=== PATIENT | male | born 1960 | race Caucasian/White ===

== ENCOUNTER 2020-01-30 10:41 | Day surgery (SDC) | payer OTHER, SELFPAY ==
[2020-01-30] VITALS (7 sets, daily range): BP systolic 139–159; BP diastolic 87–106; PULSE 64–71; RESP 16–18; TEMP 36.1–37.1; O2SAT 94–98; BMI 43.1
--- NOTE | 2020-01-30 10:52 | RAD_ITS ---
STUDY: X-RAY - ABDOMEN/PELVIS REASON FOR EXAM: Male, 59 years old. Pre op left kidney stone TECHNIQUE: Single AP view of the abdomen / pelvis. COMPARISON: None. FINDINGS: There is a moderate amount of colonic fecal material. There is a 8.3 mm calculus overlying the transverse process of the L1 vertebrae on the left side. Normal soft tissue structures. There are diffuse degenerative changes of the visualized lumbar spine. RAD/Abdomen Single View IMPRESSION: 8.3 mm calculus overlying the transverse process of the L1 vertebrae on the left side. Electronically Signed: Rogerio Winchester, at 11:24 EDT , Service support ,
[2020-01-30] MEDS: Lactated Ringers 1,000 ML 100 ML IV (11:38)
--- NOTE | 2020-01-30 12:44 | HP.PCM_ITS ---
Problem List (1) Left ureteral calculus Status: Acute History of Present Illness Date of Admission: 01/30/20 Chief Complaint: Left ureteral calculi The patient is a 59 year old male with a proximal left ureteral calculi causing obstruction plan to proceed with shockwave lithotripsy and treatment of stone Past Medical History Allergies No Known Allergies Allergy (Verified 01/30/20 11:17) Home Medications: Ambulatory Orders Medication Instructions Recorded Amlodipine Besylate/Benazepril 1 ea PO QHS 01/22/20 [Amlodipine-Benazepril 10-40 mg] Furosemide [Lasix] 20 mg PO DAILY 01/22/20 Multivit with Iron,Minerals 1 ea PO DAILY 01/22/20 [Complete Senior] Psyllium Husk [Metamucil] 1.2 gm PO DAILY 01/22/20 Tamsulosin HCl [Flomax] 0.4 mg PO DAILY 01/22/20 Varenicline [Chantix] 1 mg PO BID 01/22/20 Surgical History: no surgical history Smoking Status: Former smoker Tobacco Use: Non-smoker Review of Systems Constitutional: Denies: Chills, Fever, Weight Change HEENT: Denies: Head Aches, Sinus Congestion, Sinus Drainage Cardiovascular: Denies: Chest Pain, Palpitations Respiratory: Denies: Cough, Shortness of breath at rest, Sputum production Gastrointestinal: Denies: Abdominal Pain, Nausea, Vomiting Genitourinary: Denies: Dysuria Musculoskeletal: Denies: Joint Pain, Joint Tenderness Skin: Denies: Rash, Wounds Neurological: Denies: Numbness, Tingling, Focal weakness Psychiatric: Denies: Anxiety, Depression, Homicidal Ideations, Suicidal Ideations Hematologic/ Lymphatic: Denies: Easy Bruising, Easy Bleeding VTE Information - Inpt Only VTE Present on Admission: No Patient Problems: Active and Suspected Problems Left ureteral calculus (Acute) - Physical Exam Vitals/I&O's: Vital Signs Temp Pulse Resp BP Pulse Ox 98.7 F 67 16 156/91 H 97 01/30/20 11:18 01/30/20 11:18 01/30/20 11:18 01/30/20 11:18 01/30/20 11:18 Oxygen Delivery Method Room Air Weight: 156.6 kg Body Mass Index (BMI) 43.1 General: Alert, Oriented x3, Cooperative HEENT: Atraumatic, PERRLA, EOMI, Normocephalic Neck: Supple, No JVD, Negative Carotid Bruits Lungs: Clear to auscultation, Normal air movement Cardiovascular: Regular rate, No murmurs Abdomen: Bowel Sounds Present, Soft, Non Tender Extremities: No edema, Capillary Refill Less than 3 Seconds Skin: No rashes, No breakdown Musculoskeletal: No Tenderness to Palpation of Joints or Extremities Neurological: Cranial nerves II-XII grossly intact Psych/Mental Status: Normal Affect, Appropriate Current Medications Lactated Ringer's () 1,000 mls @ 100 mls/hr IV .Q10H [facility] Last Admin: 01/30/20 11:38 Dose: 100 mls/hr Documented by: Assessment/Plan All Active Problems Left ureteral calculus (Acute) Plan to proceed with left extracorporeal shockwave lithotripsy
[2020-01-30] MEDS: Ketorolac 15 MG/ML Vial IV (12:47)
--- NOTE | 2020-01-30 12:48 | DCINST_ITS ---
Discharge Diet: No Restrictions Discharge Activity: Return to Normal Activity, May Not Drive - for 2 days. Additional Activity Instructions:: Please be aware that pain medications may cause nausea. You should typically eat light foods as you take your pain medication. Pain medication may cause constipation, if this is a problem for you, please discuss with your doctor. Suture Line Care: Avoid Pinching/Bending Allergies/Adverse Reactions: Allergies No Known Allergies Allergy (Verified 01/30/20 11:17) Medications to take at Discharge Amlodipine Besylate/Benazepril [Amlodipine-Benazepril 10-40 mg] 1 ea PO QHS 01/22/20 Furosemide [Lasix] 20 mg PO DAILY 01/22/20 Multivit with Iron,Minerals [Complete Senior] 1 ea PO DAILY 01/22/20 Psyllium Husk [Metamucil] 1.2 gm PO DAILY 01/22/20 Tamsulosin HCl [Flomax] 0.4 mg PO DAILY 01/22/20 Varenicline [Chantix] 1 mg PO BID 01/22/20 Hydrocodone Bitart/Apap 5-325 [[place] 5MG-325MG] 1 tablet PO Q4H PRN PRN 7 Days #14 tablet 01/30/20 The following prescriptions were given: Hydrocodone Bitart/Apap 5-325 [[place] 5MG-325MG] 1 tablet PO Q4H PRN PRN 7 Days #14 tablet PRN Reason: Pain Transmission Status: Sent to [facility] Primary Care Physician: Nallely Oneal NP, [employer] RELATIONS OFFICER-C [Primary Care Provider] - Test Results: Test results from this visit will be discussed in further detail at your follow- up appointment, if applicable. Please Follow Up With: Camron Gonzalez MD When: in 2 weeks, please call to make an appointment.
--- NOTE | 2020-01-30 13:36 | OP.PCM_ITS ---
Problem List (1) Left ureteral calculus Status: Acute Report of Operation Date of Procedure: 01/30/20 Pre-Operative Diagnosis: Left proximal ureteral calculi 8 mm in size Post-Operative Diagnosis: Same Surgery/Procedure Performed:: Left extracorporeal shockwave lithotripsy Description of Surgical Findings:: 59-year-old male presents to the office with an obstructing stone in the proxima l left ureter today we can proceed with shockwave lithotripsy. He was taken back to the operating room underwent general anesthesia he was placed supine on the lithotripter table we then found the stone in the left proximal ureter and proceed with shockwave lithotripsy we started off at a rate of 90/min and power from 5 kV working her way up finally went up to 9 kV and we ended up giving a complete treatment of 4000 saw shockwaves to the stone at the end of the treatment the stone to definitely broken up the little small pieces still visible under x-ray but had broken up sufficiently that identical stent was necessary so at this point is anesthetic was reversed extubated taken back to the PACU in good condition we will follow-up in a few weeks with a KUB to make sure he passes the stone fragments that are broken up. No stent was placed. Type of Anesthesia:: General Drains: none - Admit VTE Documentation VTE Present on Admission: No VTE Mechan Device Prophylaxis: SCD's
== END 2020-01-30 14:50 | disposition home or self-care (01) ==
LOC: SDC 10:43 → AC 10:59
PROVIDERS: Anesthesiology; PCP Nurse Practitioner Primary Care; Referring Provider Urology; Visit Provider Urology
PROC: (CPT 50590; principal; 2020-01-30 12:50)
DX: N20.2 Calculus of kidney with calculus of ureter (principal); Z11.59 Encounter for screening for other viral diseases; Z79.899 Other long term (current) drug therapy; Z87.891 Personal history of nicotine dependence; I10 Essential (primary) hypertension; G47.30 Sleep apnea, unspecified; E66.9 Obesity, unspecified; Z68.41 Body mass index [BMI] 40.0-44.9, adult; N40.1 Benign prostatic hyperplasia with lower urinary tract symptoms; R35.0 Frequency of micturition; R35.1 Nocturia
CPT/HCPCS: 00873; 50590; 74018; 87635; C9803; J7120; J2405; U0003

== ENCOUNTER → 2020-02-17 14:27 | Outpatient (CLI) | payer OTHER, SELFPAY ==
[2020-01-30 11:18] VITALS: BMI 43.1
--- NOTE | 2020-02-17 14:28 | RAD_ITS ---
STUDY: X-RAY - ABDOMEN/PELVIS REASON FOR EXAM: Male, 59 years old. SURGERY YESTERDAY ON RIGHT KIDNEY TECHNIQUE: Frontal radiographs of the abdomen. COMPARISON: 30 January 2020 FINDINGS: There is no intestinal obstruction. Previously mentioned renal calculus is not well appreciated, possibly due to intervention versus technical reason. There is no intra-abdominal free gas. Osseous structures are intact. RAD/Abdomen Single View IMPRESSION: Unremarkable abdomen. If definitive evaluation of urinary calculi is required CT is the study of choice. Electronically Signed: Misha Rodríguez, at 10:26 EDT Tel , Service support ,
== END ==
PROVIDERS: PCP Nurse Practitioner Primary Care; Visit Provider Urology
DX: N20.0 Calculus of kidney (principal)
CPT/HCPCS: 74018

== ENCOUNTER → 2020-10-19 16:37 | Outpatient (CLI) | payer OTHER, SELFPAY ==
[2020-01-30 11:18] VITALS: BMI 43.1
[2020-10-19 16:59] LABS: Red Blood Cells-Urine 0 SEEN /hpf (0-5); Squamous Epithelial Cells - UA 0 SEEN /hpf (0-5)
[2020-10-19 17:06] LABS: Color, Urine Yellow (Yellow); Glucose, Dipstick Normal (Normal); Ketone-Dipstick Negative (Negative); Leukocyte Esterase-Dipstick 25 /ul (Negative); Nitrite-Dipstick Negative (Negative); Occult Blood-Urine 25 /ul (Negative); Protein-Dipstick Negative (Negative); Specific Gravity, Urine 1.025 (1.002-1.030); Urine Bilirubin Dipstick Negative (Negative); Urine Clarity Clear (Clear); Urine Urobilinogen Normal (Normal)
[2020-10-19 17:33] LABS: Bacteria 0 SEEN /hpf (None Seen); Calcium Oxalate Crystals Ur 1+ /hpf (<or=2+); Mucous, Urine 1+ /hpf (<or=2+); White Blood Cells 0-5 SEEN /hpf (0-5)
== END ==
PROVIDERS: PCP Nurse Practitioner Primary Care; Visit Provider Nurse Practitioner Adult Health
DX: R31.29 Other microscopic hematuria (principal)
CPT/HCPCS: 81001

== ENCOUNTER → 2020-11-25 10:51 | Outpatient (CLI) | payer OTHER, SELFPAY ==
[2020-01-30 11:18] VITALS: BMI 43.1
--- NOTE | 2020-11-25 | IMM_PTH ---
PATIENT: HORTENSIA SHI LOC: [facility] U#:[id number] AGE/SX: 64/M ROOM: RE11/25/[address]: Dr. Camron Gonzalez MD : 1960 BED: DIS: SPEC #: [id number] RECD: 11/26/20 12:42 STATUS: YENNI REQ #: [id number] QUE: 11/25/20 00:[address]: Camron Gonzalez DEPT: IMMUNOHISTOCHEMISTRY RECD BY: Zeenat Lewis ENTERED: 11/26/20 12:43 SP TYPE: IMMUNO OTHR DR: Nallely Oneal, ANALYTICAL STATISTICIAN-C Tissues: E - PROSTATE LEFT Procedures: P40 (add) 34BE12 (initial) PHYSICIAN & INSTITUTION [place] [address] SPECIMEN INFORMATION: Tissue Source: E - Left prostate, mid, core biopsy Clinical Info: R97.20 Specimen Number: [id number] CPT code: 57660, 03159 METHODOLOGY: Deparaffinized sections of prefer/formalin-fixed tissue or PAP/DQ stained slides are incubated with monoclonal/polyclonal antibodies/oligonucleotide probes. Localization is made via biotin free immunoperoxidase method. Appropriate controls are performed and reacted as expected. Results on target cell population are indicated in the following table: RESULTS: ANTIBODY / CLONE RESULT Block E P40 (BC28) negative 34BE12 (34BE12) negative These tests were developed and their performance characteristics determined by [facility]. They may not have been cleared or approved by the U.S. Food and Drug Administration. The FDA has determined that such clearance or approval is not necessary. The above immunohistochemical/dualISH markers are ordered and reviewed by the Pathologist. INTERPRETATION: E. Left prostate, mid, core biopsy: A minute focus of adenocarcinoma. ROBERTO:theodore 11/29/2020
--- NOTE | 2020-11-25 | PROSBIL_PTH ---
PATIENT: HORTENSIA SHI LOC: [facility] U#:[id number] AGE/SX: 64/M ROOM: RE11/25/[address]: Dr. Camron Gonzalez MD : 1960 BED: DIS: SPEC #: [id number] RECD: 11/25/20 13:36 STATUS: YENNI ERA #: [id number] QUE: 11/25/20 00:[address]: Camron Gonzalez DEPT: SURGICAL PATHOLOGY RECD BY: Leonardo Vera ENTERED: 11/25/20 13:36 SP TYPE: PROST BX DEANNA DR: Nallely Oneal, MANAGER PUBLIC-C Tissues: A - PROSTATE RIGHT B - PROSTATE RIGHT C - PROSTATE RIGHT D - PROSTATE LEFT E - PROSTATE LEFT F - PROSTATE LEFT Procedures: PROSTATE BX HEADER OPERATION: Prostate biopsy PRE-OP DIAGNOSIS: R97.20 TISSUE SUBMITTED: A - Right apex, B - Right mid, C - Right base, D - Left apex, E - Left mid, F - Left base MICROSCOPIC DIAGNOSIS A. Right prostate, apex, core biopsy: Prostatic adenocarcinoma. Dobbins grade: 5+5=10 Number of cores involved: 2/3 Proportion of tissue involved: ~50% Perineural invasion: Not identified. Greatest tumor length: 0.5 cm B. Right prostate, mid, core biopsy: Prostatic adenocarcinoma. Humphrey grade: 5+4=9 Number of cores involved: 2/2 Proportion of tissue involved: ~60% Perineural invasion: Not identified. Greatest tumor length: 0.6 cm C. Right prostate, base, core biopsy: Prostatic tissue, negative for malignancy. Focal mild chronic inflammation. D. Left prostate, apex, core biopsy: Prostatic tissue, negative for malignancy. E. Left prostate, mid, core biopsy: A minute focus of prostatic adenocarcinoma. Dobbins grade: 3+3=6 Number of cores involved: 1/2 Proportion of tissue involved: <5% Perineural invasion: Not identified. Greatest tumor length: <0.1 cm See comment. F. Left prostate, base, core biopsy: Prostatic adenocarcinoma. Humphrey grade: 3+3=6 Number of cores involved: 2/2 Proportion of tissue involved: ~25% Perineural invasion: Present, focal. Greatest tumor length: 0.7 cm, discontinuous SJ:theodore 11/26/2020 COMMENT E. Immunohistochemistry ([id number]) supports the above diagnosis. Case has been reviewed in consultation with Dr. Chandra who concurs with the above diagnosis. IDC:AM MICROSCOPIC DESCRIPTION Slides are reviewed. GROSS DESCRIPTION A - Received is one container designated prostate, right apex. The specimen consists of three elongated fragments of light gallardo-white soft tissue measuring 0.5 to 1.5 cm in length and 0.1 cm in diameter. The specimen is totally submitted in one cassette. B - Received is one container designated prostate, right mid. The specimen consists of two elongated fragments of light gallardo-white soft tissue each measuring 1.5 cm in length and 0.1 cm in diameter. The specimen is totally submitted in one cassette. C - Received is one container designated prostate, right base. The specimen consists of two elongated fragments of light gallardo-white soft tissue each measuring 1.3 cm in length and 0.1 cm in diameter. The specimen is totally submitted in one cassette. D - Received is one container designated prostate, left apex. The specimen consists of two elongated fragments of light gallardo-white soft tissue each measuring 1.5 cm in length and 0.1 cm in diameter. The specimen is totally submitted in one cassette. E - Received is one container designated prostate, left mid. The specimen consists of two elongated fragments of light gallardo-white soft tissue measuring 0.5 and 1.5 cm in length and 0.1 cm in diameter. The specimen is totally submitted in one cassette. F - Received is one container designated prostate, left base. The specimen consists of two elongated fragments of light gallardo-white soft tissue each measuring 1 cm in length and 0.1 cm in diameter. The specimen is totally submitted in one cassette. / SJ:rg 11/25/20 TC:0 CPT: 34931 x6
== END ==
PROVIDERS: PCP Nurse Practitioner Primary Care; Referring Provider Urology; Visit Provider Urology
DX: R97.20 Elevated prostate specific antigen [PSA] (principal)
CPT/HCPCS: 88305; 88341; 88342; G0416

== ENCOUNTER → 2020-12-13 08:05 | Outpatient (CLI) | payer OTHER, SELFPAY ==
[2020-01-30 11:18] VITALS: BMI 43.1
--- NOTE | 2020-12-13 08:07 | NM_ITS ---
CLINICAL: Male, 60 years old. PROSTATE CA WHOLE BODY NUCLEAR BONE SCAN TECHNIQUE: Following the IV administration of 25.5 mCi of Tc MDP, whole body bone imaging was performed with a gamma camera following a three hour delay. FINDINGS: There is a normal concentration of radiopharmaceutical throughout the axial and appendicular skeletal system. Mild focal increased uptake is seen along the medial compartment of the right knee joint suggestive of a degenerative change. NM/Bone Scan Whole Body IMPRESSION: No evidence of bony metastasis. Electronically Signed: Rogerio Winchester MD at 13:09 EDT , Service support ,
== END ==
PROVIDERS: PCP Nurse Practitioner Primary Care; Referring Provider Urology; Visit Provider Urology
DX: C61 Malignant neoplasm of prostate (principal)
CPT/HCPCS: 78306; A9503

== ENCOUNTER → 2020-12-16 07:36 | Outpatient (CLI) | payer OTHER, SELFPAY ==
[2020-01-30 11:18] VITALS: BMI 43.1
--- NOTE | 2020-12-16 07:41 | CT_ITS ---
STUDY: CT ABDOMEN AND PELVIS WITH CONTRAST REASON FOR EXAM: Male, 60 years old. MALIGNANT NEOPLASM OF PROSTATE RADIATION DOSAGE (If Supplied By Facility): CTDIvol = ( 13.63 ) mGy, DLP = ( 1499.51 ) mGycm TECHNIQUE: Transaxial images were obtained from the dome of the diaphragm to the symphysis pubis without oral contrast. IV 100mL Isovue-300 was administered. Sagittal and coronal images were reconstructed. Individualized dose optimization techniques were used for this CT. COMPARISON: None. FINDINGS: Minimal degree of increased markings at the lung bases suggestive of mild basilar scarring. The visualized portions of the heart are within normal limits. There is decreased attenuation of the liver consistent with steatosis. Normal gallbladder and extrahepatic biliary system. Normal spleen. Normal pancreas. Normal bilateral adrenal glands. There is a 2 mm nonobstructive calculus in the upper pole calyx of the right kidney. Normal left kidney. There is a small hiatal hernia. Normal small intestine. There are scattered colonic diverticula consistent with diverticulosis. The appendix is visualized and appears normal. There is scattered atherosclerotic calcification of the abdominal aorta, without a demonstrated aneurysm. Normal inferior vena cava. Normal retroperitoneum. Normal urinary bladder. The prostate measures 4.3 cm x 5.7 cm. Central calcifications are seen. Normal abdominal wall. There are mild degenerative changes of the visualized lumbar spine. Degenerative changes of the sacroiliac joints bilaterally. 4 mm rounded sclerotic focus in the anterior aspect of the S1 vertebrae. This may represent a small bone island. CT/Abdomen/Pelvis WITH Contrast IMPRESSION: Prostatic calcifications. Fatty infiltration of the liver. 2 mm nonobstructive calculus in the right kidney. Electronically Signed: Rogerio Winchester MD at 9:22 EDT , Service support ,
[2020-12-16 08:15] LABS: CREATININE FINGERSTICK 0.9 mg/dL (0.70-1.30); EGFR FINGERSTICK > 60.0000 mL/min (>60)
== END ==
PROVIDERS: PCP Nurse Practitioner Primary Care; Referring Provider Urology; Visit Provider Urology
DX: C61 Malignant neoplasm of prostate (principal)
CPT/HCPCS: 74177; Q9967

== ENCOUNTER 2021-01-26 05:19 | Day surgery (SDC) | payer OTHER, SELFPAY ==
[2020-01-30 11:18] VITALS: BMI 43.1
[2021-01-26] VITALS (14 sets, daily range): BP systolic 106–137; BP diastolic 62–75; PULSE 67–86; RESP 16–18; TEMP 36.1–36.7; O2SAT 92–96; BMI 40.5
[2021-01-26] MEDS: Lactated Ringers 1,000 ML 100 ML IV ×3 (05:35→13:41)
[2021-01-26] MEDS: Cefazolin 2 GM in 0.9% Normal Saline 100 ML IV (07:26)
--- NOTE | 2021-01-26 07:30 | PROST_PTH ---
PATIENT: HORTENSIA SHI LOC: [facility] [place] U#:[id number] AGE/SX: 60/M ROOM: RE01/26/[address]: Dr. Camron Gonzalez MD : 1960 BED: DIS: 01/27/2021 SPEC #: [id number] RECD: 01/26/21 13:12 STATUS: YENNI ERA #: [id number] QUE: 01/26/21 07:[address]: Camron Gonzalez DEPT: SURGICAL PATHOLOGY RECD BY: Francis Rome ENTERED: 01/26/21 14:26 SP TYPE: PROSTATE OTHR DR: Nallely Oneal, WIRE HARNESS ASSEMBLER-C Tissues: A - Adipose tissue B - Lymph node of pelvis, NOS C - Lymph node of pelvis, NOS Prostate, NOS Procedures: Surgery Specimen Level III Surgery Specimen Level V Surgery Specimen Level HEADER OPERATION: Laparoscopic robotic radical prostatectomy with nerve sparing PRE-OP DIAGNOSIS: Prostate cancer TISSUE SUBMITTED: A ? Fat over prostate, B ? Left pelvic lymph node, C ? Right pelvic lymph node, D - Prostate MICROSCOPIC DIAGNOSIS A. Fat over prostate: Negative for carcinoma. B. Left pelvic lymph node, biopsy: Six out of six lymph nodes negative for metastatic carcinoma. C. Right pelvic lymph node, biopsy: Eight out of eight lymph nodes negative for metastatic carcinoma. D. Prostate, radical prostatectomy: Prostatic adenocarcinoma. See cancer summary in the comment section. SJ:theodore 01/31/2021 COMMENT PROSTATE CANCER (RADICAL) SUMMARY: Procedure: Radical Prostatectomy Prostate Size: Weight: 69 gm Size: 6 cm transversely, 3.5 cm anterior-posteriorly and 4 cm craniocaudally Histologic type: Acinar adenocarcinoma Histologic grade: Group 5 (Humphrey score 5+4=9) Tertiary pattern: [place] grade 3 Tumor Quantitation: Estimated percentage of prostate involved by tumor: ~50% Tumor size: Tumor involves both right and left lobe. Tumor in the right lobe involves apical and mid portion of the prostate and measures approximately 2 x 2 x 1.6 cm (measured microscopically). Tumor in the left lobe involves apical, mid and basal portion of prostate and measures about 3 x 2 x 2 cm (measured microscopically). Extraprostatic Extension: Not identified Urinary Bladder Neck Invasion: Not identified Seminal Vesicle Invasion: Not identified Lymphvascular Invasion: Not identified Perineural Invasion: Present, frequent Margins: involved by invasive carcinoma Apical margin is positive for carcinoma. Tumor measures at the margin 2 mm in greatest dimension. [place] pattern at positive margin: 3+3 Treatment Effect: No known presurgical therapy. Regional Lymph Nodes: Number of lymph nodes involved by carcinoma: 0 Number of Lymph Nodes Examined: 14 Additional Pathologic Findings: - Focal high-grade prostatic intraepithelial neoplasia (HGPIN). - Benign prostatic hyperplasia. - Chronic inflammatory. Ancillary studies: Not performed PATHOLOGIC STAGE: pT2 pN0 pMx The above summary is in compliance with [employer] (CAP) Cancer Protocols Checklist and [place] Joint Committee on Cancer (AJCC), Staging Manual, 8th Ed. Please make reference to previous specimen ([id number]) right prostate, apex, right prostate, mid, core biopsies and left prostate, mid and left prostate, base, core biopsies with diagnosis of ?prostatic adenocarcinoma.? Case has been reviewed in consultation with Dr. Chandra who concurs with the above diagnosis. IDC:AM MICROSCOPIC DESCRIPTION Slides are reviewed. GROSS DESCRIPTION A - Received in fixative is one container labeled with the patient's name and designated fat over prostate. The specimen consists of multiple pieces of adipose tissue that in aggregate measure 3.5 x 3 x 0.5 cm. No mass lesion is identified. Ese Teacher tissue is submitted in one cassette. Sections will be submitted after additional fixation. Specimen is submitted after additional fixation. B - Received in fixative is one container labeled with the patient's name and designated left pelvic lymph nodes. The specimen consists of two pieces of yellow adipose tissue containing nodules that in aggregate measure 4 x 3.5 x 1 cm. Two nodules consistent with lymph nodes are noted each measuring 2 cm in greatest dimension. Two smaller nodules consistent with lymph nodes are also noted measuring 0.5 and 0.7 cm in greatest dimension. The entire specimen is submitted in three cassettes as follows: 1??one bisected lymph node, 2 - one bisected lymph node, 3 - two smaller lymph nodes and rest of the specimen. Specimen is submitted after additional fixation. C - Received in fixative is one container labeled with the patient's name and designated right pelvic lymph nodes. The specimen consists of two pieces of yellow adipose tissue containing nodule consistent with lymph node that in aggregate measure 5 x 5 x 1.5 cm. Four nodules consistent with lymph nodes are noted measuring 0.7 to 3 cm in greatest dimension. The entire specimen is submitted in five cassettes as follows: 1-3 - one serially sectioned lymph node, 4 - three nodules, 5 - rest of the specimen. Specimen is submitted after additional fixation. D - Received in fixative is one container labeled with the patient's name and designated prostate. The specimen consists of a radical prostatectomy specimen consisting of prostate and bilateral seminal vesicles and vas deferens. The specimen weighs 69 gm. The prostate measures 6 cm transversely, 3.5 cm anterior-posteriorly and 4 cm craniocaudally. The right seminal vesicle measures 2 x 1 x 0.5 cm and right vas deferens measures 3 cm in length and 0.4 cm in diameter. The left seminal vesicle measures 2 x 1 x 1 cm and the left vas deferens measures 2 cm in length and 0.4 cm in diameter. The prostate is inked as follows: anterior margin - yellow, posterior margin - black, right lateral surface - blue, left lateral surface - green. Bilateral seminal vesicles and vas deferens are inked as follows: posterior surface - black, anterior surface right seminal vesicle and vas deferens - blue and anterior left seminal vesicle and vas deferens - green. Sections do not reveal any mass lesion. Ese Teacher sections are submitted in 19 cassettes as follows: 1 - right seminal vesicle and vas deferens, 2 - left seminal vesicle and vas deferens, 3 - apical margin, urethral margin, enface, 4 & 5 - bladder base and basal portion of urethral margin, enface, 6-9 - apical portion prostate, 10-13 - middle portion prostate, 14-19 - basal portion prostate. Specimen is submitted after additional fixation. / ROBERTO:theodore 07/27/20 TC: CPT:
--- NOTE | 2021-01-26 07:35 | PCM.HP.STD ---
HPI - General HPI Narrative HORTENSIA SHI, is a 60 M who presents for radical prostatectomy recent diagnosis of high risk prostate cancer as elected surgery approach but understands risk of failure to cure and may need more treatment post of such had hormone therapy and radiation. [facility] Medical History (Updated 01/26/21 @ 07:[address] Camron Gonzalez MD) Ambulates with cane CPAP (continuous positive airway pressure) dependence Hypertension Injury of back Loss of consciousness Sleep apnea Smoker Sternum fx Wears dentures Wears glasses Home Medications furosemide 20 mg PO DAILY 01/22/20 [History Last Taken Unknown] geriatric ujhyuekb-capk-vatp 1 ea PO DAILY 01/22/20 [History Last Taken Unknown] amlodipine-benazepril 1 cap PO DAILY 01/19/21 [History Last Taken 01/26/21] fiber 2 tab PO DAILY 01/19/21 [History Last Taken Unknown] melatonin 10 mg PO QHS 01/19/21 [History Last Taken Unknown] metoprolol succinate 25 mg PO BID 01/19/21 [History Last Taken 01/26/21] ciprofloxacin HCl [Cipro] 500 mg PO BID #20 tab 01/26/21 [Rx Last Taken Unknown] docusate sodium [Colace] 100 mg PO BID #20 cap 01/26/21 [Rx Last Taken Unknown] oxycodone-acetaminophen 1 tab PO Q6H PRN 7 Days #14 tab 01/26/21 [Rx Last Taken Unknown] Allergy/AdvReac Type Severity Reaction Status Date / Time No Known Allergies Allergy Verified 01/26/21 05:43 Surgical History (Updated 01/19/21 @ 11:31 by Jasmni Lopez) History of back surgery History of cystoscopy Hx of colonoscopy Hx of hernia repair Hx of right knee surgery Social History Smoking Status: Current some day smoker tobacco type: cigarettes Vital Signs Vital Signs Vital Signs: 01/26/21 06:06 Temperature 97.8 F Temperature Source Temporal Pulse Rate 83 Respiratory Rate 16 Respiratory Pattern Normal Blood Pressure 137/73 H Blood Pressure Mean 94 Blood Pressure Source Monitor Blood Pressure Position Supine Blood Pressure Location Right Arm Pulse Ox 95 Oxygen Delivery Method Room Air Weight Weight: 147 kg Body Mass Index (BMI) 40.5 Physical Exam Const alert and oriented x3 General Appearance: cooperative HEENT normocephalic, head/scalp atraumatic, EAC's normal and TM's normal bilaterally Eyes PERRL and EOMs intact bilaterally Pupil: sluggish Neck no lymphadenopathy, supple and no JVD General: trachea midline Lymph Lymphatic: no lymphadenopathy noted, lymphedema and lymphadenopathy Resp normal respiratory effort, normal air movement and clear to auscultation bilaterally Cardio regular rate, regular rhythm and peripheral pulses 2+ throughout GI soft to palpation, non-tender and non-distended Extremity normal capillary refill and no clubbing, cyanosis or edema General Extremity: no tenderness to palpation of joints or extremities Skin no rashes or lesions noted General Skin Exam: turgor normal Lesions: no lesions Rashes: no rashes Neuro CN's II-XII intact bilaterally Speech: speech normal Motor Exam: strength 5/5 throughout; Negative for general weakness Psych thought process normal, cooperative and affect normal Appearance: appropriate Assessment & Plan Assessment/Plan (1) Prostate cancer:
--- NOTE | 2021-01-26 11:40 | DCINST_ITS ---
Discharge Instructions Diet Discharge Diet: No restrictions Activity Discharge Activity: Return to Normal Activity and May Not Drive (while taking narcotic pain medications.) Dressing / Incision Call your doctor if you observe: Fever of 101 or Higher Catheter: Gregory to leg bag and Gregory to large bag Drain: [place] Follow Up Care Please Follow Up With: Camron Gonzalez MD When: Call [phone] for an appointment Test Results: Test results from this visit will be discussed in further detail at your follow-up appointment, if applicable. Discharge Plan Admission Primary Reason for Your Visit: Radical Prostatectomy Attending Provider: Camron Gonzalez Primary Care Provider: Nallely Oneal NP Instructions Patient Instructions: Radical Prostatectomy Dc Discharge Orders/Prescriptions Prescriptions: New docusate sodium [Colace] 100 mg capsule 100 mg PO BID Qty: 20 RF: 0 ciprofloxacin HCl [Cipro] 500 mg tablet 500 mg PO BID Qty: 20 RF: 0 oxycodone-acetaminophen 5-325 mg tablet 1 tab PO Q6H PRN (Reason: pain) 7 Days Qty: 14 RF: 0 Continued furosemide 20 MG tablet 20 mg PO DAILY RF: 0 geriatric lnuzodux-qbif-sxbu 1 EACH tablet 1 ea PO DAILY RF: 0 fiber Tablet 2 tab PO DAILY RF: 0 metoprolol succinate 25 mg tablet extended release 24 hr 25 mg PO BID RF: 0 amlodipine-benazepril 10-40 mg capsule 1 cap PO DAILY RF: 0 melatonin 10 mg Tablet 10 mg PO QHS RF: 0 Discontinued tamsulosin 0.4 MG capsule 0.4 mg PO BID RF: 0 Other Ambulatory Orders: Type & Screen - PAT ONLY (Routine) Timeframe: 20210119 Facility: [facility] - Location: Laboratory Ordered By: Dr. Nicola Magdaleno Referrals / Follow Up: Camron Gonzalez MD [STAFF PHYSICIAN] - Nallely Oneal NP, HIGH SPEED WARPER TENDER-C [Primary Care Provider] - Disposition Disposition (needs filled in before D/C Order can be placed): Home, Self Care
--- NOTE | 2021-01-26 11:41 | OP.PCM_ITS ---
Problems Associated Problem List Diagnoses (1) Prostate cancer: Report of Operation Date of Procedure: 01/26/21 Pre-Operative Diagnosis: prostate cancer Post-Operative Diagnosis: same Surgery/Procedure Performed:: laparoscopic robotic assisted radical prostatectomy and complete bilataral pelvic lymph node dissection. Description of Surgical Findings:: Patient presented to the hospital for treatment of his prostate cancer with radical prostatectomy. In the preoperative setting we discussed the options of management for his prostate cancer including active surveillance, radiation treatments, radioactive seeds, and radical robotic prostatectomy. We discussed the side effects of surgery including the potential to lose erections. We discussed the potential to have bladder control problems with stress incontinence which can be temporary or permanent. We discussed the risk of the surgery including the risk of general anesthetic, risk of bleeding, risk of infection, and risk of formation of hernia either incisional hernia or inguinal hernia. After long discussion with the patient the preoperative setting and also reviewed this in the preop area patient signed the consent form and we proceeded with a radical prostatectomy. Patient was taken back to the operating room he was identified, time out procedure was performed and he was placed supine on the table he underwent general anesthesia with intubation. The abdomen was shaved prepped and draped in usual sterile fashion as well as the penis and testicles. A 16 Vietnamese catheter was placed into the bladder with clear return of urine. I then made an incision in the umbilicus and dissected down to the fascia advance a Veress needle into the peritoneal cavity and insufflated the peritoneal cavity with CO2 gas. I then placed a 12 mm trocar above the umbilicus. I then visualized the placement of the rest of the trochars, I placed a right arm robotic trocar, and air seal trocar, a suction port 5 mm trocar. And on the left side I placed 2 robotic arms. Once all the trochars were in placed the patient was put in steep Trendelenburg. And the robot was docked the arms were docked and then I placed the 0 degree camera through the robotic arm and also used a 30 degree camera during certain parts of the case. I used scissors in the right arm, prograsp in the third arm, and a bipolar in the second arm. Initial dissection was to free the sigmoid colon off the lateral wall this was done by meticulously dissecting off the peritoneum and the sigmoid colon off the left lateral wall. This then allowed the prograsp to retract the sigmoid colon out of the pelvis. I then went below the bladder and identified the vas deferens incised the peritoneum over the vas deferens and traced the vas deferens below the bladder to the prostate and identified the right and left vasa deferens. Below behind the vas deferens then the seminal vesicles were identified. I then dissected the seminal vesicle free using pinpoint electrocautery and then we identified the other seminal vesicle and then dissected this using pinpoint electrocautery I then elevated the vas deferens and several vesicles off the prostate and was able to sweep the Denonvilliers' fascia off the prostate posteriorly all the way up to the apex of the prostate. Working laterally I made sure I went as lateral as possible to sweep the Denonilliers' fascia off the posterior aspect of the prostate and worked my way back, I then transected the vas deferens and the left and right side the seminal vesicles were then dissected free. And then I p ulled out of the pelvis. At this point the bladder was dropped creating the space of Retzius with the bladder on traction with the fourth arm. Using electrocautery I dissected in the anterior peritoneal fascia and then created the space of Retzius dissecting towards the prostate. The pelvic lymph node dissection was then performed both on the left and the right pelvic lymph nodes the nodes that were taken on the right side extended from the right iliac artery lateral pelvic sidewall up to the junction of the artery and the lymph nodes and down to the obturator nerve and then also below the mud analysis well logging operator nerve all the lymph nodes were removed during to remove those lymph nodes we used clips and electrocautery to control small blood vessels and also the control lymphatic. I then went to the left side and again did an extensive lymph node dissection starting of the left iliac artery extending the left iliac vein on the lateral sidewall down to the obturator nerve and the left side beyond the mud analysis well logging operator nerve down further behind it cleaning out all the lymphatic tissue all this tissue was sent off as a specimen we use clips and electrocautery during the dissection. At the end we cleaned out all the lymphatic tissue on the right pelvic wall and no lymphatic tissue in the left pelvic wall. The prostate was then cleaned of the fat over the prostate and the fourth arm was used to retract the bladder and place traction. I then identified the endopelvic fascia that was overlying the prostate on the right side I incised endopelvic fascia and wwept the levator muscles off the prostate all the way to the apex on the right side, I then worked my way anterior to the prostate then transected to the puboprostatic ligament and the underlying dorsal vein complex was not injured. I then went to the other side and identified the endopelvic fascia in the left side incised in a fashion the left side and swept the levator muscles off the prostate on the left side all the way up to the apex the puboprostatic ligament on the left side was then dissected and transected I then freed up the fascia overlying the dorsal vein complex. I then used the prograsp to encircled the dorsal vein complex with the prograsp and then switched over to the right and left needle charter coach driver and suture ligated the dorsal vein complex above the prograsp. The prograsp was then placed back in the bladder and put back on traction I then identified the junction between the bladder and the prostate and dissected down between the bladder and the prostate untilI came across the catheter we then dissected posteriorly to the bladder and prostate to free the prostate and the bladder off each other and the muscles between the bladder and the prostate was then cauterized to free up the bladder. I then went on top of the prostate and identified the endopelvic fascia on top of the prostate this was incised all the way to the apex and then we swept the endopelvic fascia off the prostate laterally and then identified the plane between endopelvic fascia and the prosthetic pseudocapsule and swept the fascia laterally until reaching the course of the neurovascular bundles and then released the neurovascular bundles off the prostate laterally all the way back in a retrograde fashion back to the junction of the pedicles then the prostate was placed on traction with the fourth arm pulling the prostate laterally identified the pedicle to the prostate between the seminal vesicles and the and the neurovascular bundle and this was taken using sequential small hemolocks. After the pedicle was taken the I then dissected underneath the prostate sweeping the neurovascular bundle off the prostate we able to follow the nice smooth plane between the neurovascular bundle and the pseudocapsule all the way to the apex once this was identified we swept this up all the way up to the apex and there was perfect nerve sparing on the right side. Then went to the left side the prostate identified the endopelvic fascia over the left side of the prostate I incised the endopelvic fascia all the way to the apex and then swept this off laterally I then released the neurovascular bundles on the left side of the prostate sweeping him off the prostate laterally I then elevated the prostate up up with the prostate and traction identified the pedicle to the prostate on the left side and then the pedicles taken with sequential Hem-o-mayte clips I then was able to dissected the neurovascular bundle off the left posterior aspect the prostate this was a perfect dissection all the way up on the left side following the pseudocapsule all the way up the left side until we reached the apex of the prostate. After the both the neurovascular bundles has been swept off the posterior to the prostate I then went above and transected the dorsal vein complex there was minimal to no bleeding but then dissected down to the urethra and circumfencial dissected around the urethra I then switched the right and left arm with the needle drivers and I suture-ligated the dorsal vein complex again just to ensure that there was no bleeding from the dorsal vein complex. I then transected through the urethra with scissors and the pr ostate was then freed and released off the prostate bed and put an Endo Catch bag. At this point the bladder neck was reconstructed and then an anastomosis was performed between the prostate and the bladder with a 3 oh V-Loc stitch in a running fashion starting from the bladder neck at the 6 o'clock position working to the 12 o'clock position with continuous stitches to complete a perfect anastomosis between the bladder and the prostate. I then placed a new catheter into the bladder, an 18 Vietnamese otoe-missouria tip catheter flushed the bladder and there was no leakage from the anastomosis I put 10 cc in the balloon and pulled it up pulled back gently. I then ensured that there was no bleeding from the dorsal vein complex no bleeding from the neurovascular bundles FloSeal was placed as necessary once hemostasis was ensured and adequate then I placed the bladder back in position in the pelvis the prostate was exchanged to the camera port I closed the air seal port with a 10 12 Jorge Flores stitch. And the extracted the prostate through the umbilicus. The robot was undocked all the ports were removed under direct visualization then closed the extraction site with 0 Vicryl with a CT1 needle once the extraction site was closed. I then closed all the incision with subcuticular stitches with 4-0 Monocryl and then bandages were placed on the incisions catheter was flushed to make sure it was draining well there was no clots and it was crystal clear patient's anesthetic was reversed he was extubated and taken back to the PACU in stable condition all the needles and sponges and instruments were accounted for. Blood loss was minimal and the drain was a 18 Vietnamese Gregory catheter. No other surgical drain was left. I was present during the entire case. Surgeon: pam Type of Anesthesia: General Drains: Gregory Estimated Blood Loss (mL): 400 Admit VTE Documentation VTE Present on Admission: No VTE Mechan Device Prophylaxis: SCD's VTE Pharm Prophylaxis ordered?: No
[2021-01-26] MEDS: Bupivacaine Mpf 0.5% 30 ML VIAL (11:48)
[2021-01-26] MEDS: Ketorolac 15 MG/ML Vial IV ×2 (13:56→17:44)
[2021-01-26] MEDS: Lactated Ringers 1,000 ML 125 ML IV (17:41)
[2021-01-26] MEDS: Furosemide 20 MG Tablet PO (17:44)
[2021-01-26] MEDS: Docusate Sodium 100 MG Capsule 200 MG PO ×2 (17:44→20:51)
--- NOTE | 2021-01-26 17:58 | NURSING ---
]pandemic charting initiated
[2021-01-26] MEDS: Ciprofloxacin 400 MG/200 ML BAG 200 MG IV (19:46)
[2021-01-26] MEDS: Metoprolol(XL)Succ 25 MG Tablet PO (20:51)
[2021-01-27] MEDS: Ketorolac 15 MG/ML Vial IV ×2 (00:01→05:57)
[2021-01-27 02:50] VITALS: BP 127/67; PULSE 81; RESP 16; TEMP 36.7; O2SAT 93
[2021-01-27] MEDS: Lactated Ringers 1,000 ML 125 ML IV (04:37)
[2021-01-27] MEDS: Ciprofloxacin 400 MG/200 ML BAG 200 MG IV (05:56)
[2021-01-27 08:03] VITALS: BP 142/76; PULSE 70; RESP 16; TEMP 36.2; O2SAT 95
[2021-01-27] MEDS: Calcium Carbonate 500 MG Tablet 1000 MG PO (08:05)
[2021-01-27 08:08] VITALS: BP 142/76; PULSE 70
[2021-01-27] MEDS: Metoprolol(XL)Succ 25 MG Tablet PO (08:08)
[2021-01-27] MEDS: amLODIPine 10 MG Tablet PO (08:08)
[2021-01-27] MEDS: Furosemide 20 MG Tablet PO (08:08)
[2021-01-27] MEDS: Multivitamins,Ther W-Minerals Tablet 1 TABLET PO (08:08)
[2021-01-27] MEDS: Docusate Sodium 100 MG Capsule 200 MG PO (08:08)
[2021-01-27] MEDS: Lisinopril 40 MG Tablet PO (08:08)
== END 2021-01-27 09:56 | disposition home or self-care (01) ==
LOC: SDC 05:20 → AC 05:21 → MS2 01-27 08:18
PROVIDERS: PCP Nurse Practitioner Primary Care; Referring Provider Urology; Visit Provider Urology
PROC: 0VT04ZZ Resection of Prostate, Percutaneous Endoscopic Approach (ICD-10-PCS; CPT 55866; principal; 2021-01-26 07:10)
DX: C61 Malignant neoplasm of prostate (principal); I10 Essential (primary) hypertension; G47.30 Sleep apnea, unspecified; F17.210 Nicotine dependence, cigarettes, uncomplicated; Z79.899 Other long term (current) drug therapy
CPT/HCPCS: 00865; 38571; 55866; S2900; 88304; 88307; 88309; 97162; 99251; 99406; J7120; G0463; J0744; J2405

== ENCOUNTER 2021-01-28 15:58 | Emergency (ER) | payer OTHER, SELFPAY ==
[2021-01-28 15:59] VITALS: BP 148/87; PULSE 83; RESP 18; TEMP 36.8; O2SAT 96; BMI 40.6
--- NOTE | 2021-01-28 17:32 | EDS_ITS ---
HPI History of Present Illness Chief Complaint: Complaint Detail of Chief Complaint: Gross hematuria Informant: patient and spouse/S.O. Onset/Context/Timing Onset: Today Context: Sudden Onset Timing: Continuous Quality: Gross hematuria Location: In Gregory bag and around Gregory Current Severity: Mild Maximum Severity: Severe Worsened by: Prostatectomy Sunday Relieved by: Not applicable Associated Symptoms Associated Symptoms: No other symptoms Narrative Narrative: Patient is a 60-year-old male who had a prostatectomy performed on Sunday. He presents because of blood in the Gregory. He did not contact his urologist. He denies orthostatic symptoms. Denies fever, chills night sweats. He is not on an anticoagulant. He does not complain of pain. He was concerned because there was blood in the Gregory bag and noted on the exterior of the Gregory. Prior similar symptoms: Yes Recent Illness/Hospitalization: No PFSH PFS Medical History (Updated 01/28/21 @ 18:[address] Juanito Garza MD) Ambulates with cane CPAP (continuous positive airway pressure) dependence Hypertension Injury of back Loss of consciousness Sleep apnea Smoker Sternum fx Wears dentures Wears glasses Home Medications furosemide 20 mg PO DAILY 01/22/20 [History Last Taken Unknown] geriatric dpdpevtm-wvsi-vwnp 1 ea PO DAILY 01/22/20 [History Last Taken Unknown] amlodipine-benazepril 1 cap PO DAILY 01/19/21 [History Last Taken 01/26/21] fiber 2 tab PO DAILY 01/19/21 [History Last Taken Unknown] melatonin 10 mg PO QHS 01/19/21 [History Last Taken Unknown] metoprolol succinate 25 mg PO BID 01/19/21 [History Last Taken 01/26/21] ciprofloxacin HCl [Cipro] 500 mg PO BID #20 tab 01/26/21 [Rx Last Taken Unknown] docusate sodium [Colace] 100 mg PO BID #20 cap 01/26/21 [Rx Last Taken Unknown] oxycodone-acetaminophen 1 tab PO Q6H PRN 7 Days #14 tab 01/26/21 [Rx Last Taken Unknown] tizanidine 4 mg PO Q8 PRN 01/28/21 [History Last Taken Unknown] Allergy/AdvReac Type Severity Reaction Status Date / Time No Known Allergies Allergy Verified 01/28/21 16:01 Surgical History (Updated 01/28/21 @ 18:[address] Juanito Garza MD) History of back surgery History of cystoscopy Hx of colonoscopy Hx of hernia repair Hx of right knee surgery S/P prostatectomy Social History (Updated 01/28/21 @ 17:[address] Juanito Garza MD) household members: spouse Smoking Status: Current some day smoker tobacco type: cigarettes alcohol intake: current alcohol intake frequency: holidays/special occasions only substance use type: does not use ROS ROS ED Constitutional Constitutional ED: Denies chills, fever(s), subjective, sweats or weight loss Eyes Eyes: Denies blurry vision or change in vision ENT ENT ED: Denies ear pain, rhinorrhea or sore throat Cardiovascular Cardiovascular: Denies chest pain or palpitations Respiratory/Chest Respiratory/Chest: Denies cough, dyspnea or dyspnea on exertion Gastrointestinal Gastrointestinal: Denies abdominal pain, diarrhea, nausea or vomiting Genitourinary Genitourinary ED: Reports hematuria; Denies dysuria or urinary frequency Musculoskeletal Musculoskeletal: Denies arthralgias, back pain or myalgias Integumentary Denies rash Neurologic Neurologic: Denies weakness Hematologic/Lymphatic Hematologic/Lymphatic: Denies anemia, easy bleeding or easy bruising EXAM Physical Exam Const Vital Signs: 01/28/21 15:59 Temperature 98.2 F Temperature Source Temporal Pulse Rate 83 Respiratory Rate 18 Blood Pressure 148/87 H Blood Pressure Mean 107 Pulse Ox 96 Oxygen Delivery Method Room Air Positive well nourished, well developed, obese and unkempt General Appearance ED: unkempt and well developed Nutritional Appearance: obese HEENT HEENT Narrative: Head is atraumatic normocephalic. Ears normal. Nares patent. Eyes PERRL and EOMs intact bilaterally General Eye ED: Negative for pale conjunctiva or scleral icterus Neck no lymphadenopathy, supple and no JVD Chest Wall inspection of chest normal Resp normal respiratory effort and clear to auscultation bilaterally Cardio regular rate, regular rhythm, S1 normal heart sound, S2 normal heart sound and no murmurs GI normal to inspection, nondistended, normoactive bowel sounds Palpation: soft Narrative: Patient has indwelling Gregory. There is blood noted at the meatus. There is minimal amount of blood noted in the bag. Back/Spine no CVA tenderness Thoracic Spine / Upper Back: Negative for paraspinal muscle tenderness Extremity General Extremety ED: Yes edema; Negative for tenderness General Extremity: edema Neuro oriented x3 and CN's II-XII intact bilaterally Sensorium / Orientation: alert Psych mental status grossly normal Appearance: unkempt Skin no rashes or lesions noted MDM MDM MDM Narrative Medical decision making narrative: Suspect patient has bleeding due to recent procedure. Will obtain UA to assess for infection. If this is normal based on the minimal amount of blood noted in the Gregory bag will discuss case with urologist and in all likelihood discharge patient to home Case was discussed with Dr. Gonzalez. He states that if patient has any questions he can contact the computer operator and she will get a hold him and he will talk to the patient. Plan is to discharge to home. Lab Data Attestation: I reviewed the patient's lab results. Labs: Laboratory Results - last 24 hr 01/28/21 17:30 Urine Color Yellow Urine Clarity Sl. Cloudy Urine pH 6.5 Ur Specific [place] 1.020 Urine Protein 30 H Urine Glucose (UA) Normal Urine Ketones Negative Urine Occult Blood 250 H Urine Nitrite Negative Urine Bilirubin Negative Urine Urobilinogen Normal Ur Leukocyte Esterase 100 H Urine RBC 50-100 SEEN Urine WBC 10-25 SEEN Ur Squamous Epith Cells 0-5 SEEN Urine Bacteria 0 SEEN Urine Mucus 0 SEEN Discharge Plan Triage Chief Complaint: Complaint ED Provider: Juanito Garza Dx/Rx/DC Orders Clinical Impression: Gross hematuria, Status post prostatectomy Instructions: Discharge Instructions for ..., ED Hematuria Prescriptions: No Action furosemide 20 MG tablet 20 mg PO DAILY RF: 0 geriatric fnnnpbwd-uofg-vqxh 1 EACH tablet 1 ea PO DAILY RF: 0 fiber Tablet 2 tab PO DAILY RF: 0 metoprolol succinate 25 mg tablet extended release 24 hr 25 mg PO BID RF: 0 amlodipine-benazepril 10-40 mg capsule 1 cap PO DAILY RF: 0 melatonin 10 mg Tablet 10 mg PO QHS RF: 0 docusate sodium [Colace] 100 mg capsule 100 mg PO BID Qty: 20 RF: 0 ciprofloxacin HCl [Cipro] 500 mg tablet 500 mg PO BID Qty: 20 RF: 0 oxycodone-acetaminophen 5-325 mg tablet 1 tab PO Q6H PRN (Reason: pain) 7 Days Qty: 14 RF: 0 tizanidine 4 mg tablet 4 mg PO Q8 PRN (Reason: Muscle Spasm) RF: 0 Primary Care Provider: Nallely Oneal NP Referrals: Camron Gonzalez MD [STAFF PHYSICIAN] - Keep Sanjay appointment Nallely Oneal NP, MAMMOGRAPHY TECHNICIAN-C [Primary Care Provider] - Disposition Disposition: Home, Self Care
[2021-01-28 17:37] LABS: Bacteria 0 SEEN /hpf (None Seen); Mucous, Urine 0 SEEN /hpf (<or=2+)
[2021-01-28 17:39] LABS: Color, Urine Yellow (Yellow); Glucose, Dipstick Normal (Normal); Ketone-Dipstick Negative (Negative); Leukocyte Esterase-Dipstick 100 /ul (Negative); Nitrite-Dipstick Negative (Negative); Occult Blood-Urine 250 /ul (Negative); Protein-Dipstick 30 mg/dl (Negative); Urine Bilirubin Dipstick Negative (Negative); Urine Clarity Sl. Cloudy (Clear); Urine Urobilinogen Normal (Normal); Urine pH 6.5 (5.0 - 8.0)
[2021-01-28 17:47] LABS: Red Blood Cells-Urine 50-100 SEEN /hpf (0-5); Squamous Epithelial Cells - UA 0-5 SEEN /hpf (0-5); White Blood Cells 10-25 SEEN /hpf (0-5)
[2021-01-28 19:06] VITALS: BP 147/72; PULSE 88; RESP 17; O2SAT 98
== END 2021-01-28 19:08 | disposition home or self-care (01) ==
PROVIDERS: Emergency Provider Emergency Medicine; PCP Nurse Practitioner Primary Care
DX: R31.0 Gross hematuria (principal); F17.210 Nicotine dependence, cigarettes, uncomplicated; E66.9 Obesity, unspecified; I10 Essential (primary) hypertension; G47.30 Sleep apnea, unspecified; Z79.899 Other long term (current) drug therapy; Z90.79 Acquired absence of other genital organ(s)
CPT/HCPCS: 81001; 99282; A4216

== ENCOUNTER 2021-05-17 15:25 | Outpatient (CLI) | payer OTHER, SELFPAY ==
[2021-05-17 16:26] LABS: PSA,Total- Diagnostic < 0.01 ng/mL (0.0-4.0)
== END 2021-05-17 23:59 | disposition short-term general hospital (02) ==
LOC: LAB 15:25
PROVIDERS: PCP Nurse Practitioner Primary Care; Referring Provider Urology; Visit Provider Urology
DX: C61 Malignant neoplasm of prostate (principal)
CPT/HCPCS: 36415; 84153

== ENCOUNTER → 2021-09-16 | Outpatient (CLI) | payer OTHER, SELFPAY ==
[2021-09-16 17:25] LABS: PSA,Total- Diagnostic < 0.01 ng/mL (0.0-4.0)
== END | disposition home or self-care (01) ==
LOC: LAB 16:26
PROVIDERS: PCP Nurse Practitioner Primary Care; Visit Provider Urology
DX: C61 Malignant neoplasm of prostate (principal)
CPT/HCPCS: 36415; 84153

== ENCOUNTER → 2022-03-15 | Outpatient (CLI) | payer OTHER, SELFPAY ==
[2022-03-15 15:56] LABS: PSA,Total- Diagnostic < 0.01 ng/mL (0.0-4.0)
== END | disposition home or self-care (01) ==
LOC: LAB 13:56
PROVIDERS: PCP Nurse Practitioner Primary Care; Visit Provider Registered Nurse
DX: C61 Malignant neoplasm of prostate (principal)
CPT/HCPCS: 36415; 84153